=== PATIENT | male | born 1980 | race Hispanic/Latino ===

== ENCOUNTER 2019-01-10 09:39 | Emergency (ER) | payer OTHER ==
[2019-01-10 09:50] VITALS: BMI 35.6
[2019-01-10 10:45] LABS: BASO % 0.4 % (0.0-2.0); EOS % 0.4 % (0.0-4.0); HEMOGLOBIN 14.8 g/dL (12.0-18.0); LYMPH # 1.4 K/uL (1.0-4.3); MEAN CELL VOLUME 89.3 fl (80.0-94.0); MEAN CORPUSCULAR HEMOGLOBIN 30.7 pg (27.0-31.0); MEAN CORPUSCULAR HGB CONC 34.4 g/dL (33.0-37.0); MEAN PLATELET VOLUME 8.5 fl (7.2-11.7); MONO # 0.5 K/uL (0.0-0.8); MONO % 6.8 % (0.0-10.0); NEUT # 5.6 K/uL (1.8-7.0); NEUT % 73.4 % (50.0-75.0); NRBC % 0.1 % (0.0-0.0); RBC 4.82 Mil/uL (4.40-5.90); RED CELL DISTRIBUTION WIDTH 13.7 % (11.5-14.5); WHITE BLOOD COUNT 7.6 K/uL (4.8-10.8)
[2019-01-10 11:05] LABS: BLOOD UREA NITROGEN 19 mg/dl (9-20); CALCIUM 9.5 mg/dL (8.4-10.2); GFR NON-AFRICAN AMERICAN > 60
[2019-01-10 11:06] LABS: INR 0.9; PROTHROMBIN TIME 10.6 Seconds (9.8-13.1)
--- NOTE | 2019-01-10 11:56 | ED PDOC ---
HPI: Nose Bleed Time Seen by Provider: 01/10/19 10:02 Chief Complaint (Nursing): ENT Problem Chief Complaint (Provider): Nose bleed History Per: Patient History/Exam Limitations: no limitations Current Symptoms Are (Timing): Still Present Additional Complaint(s): 38 y/o male, with no past medical history, presents to the ER with nose bleed. Patient started having a nose bleed yesterday which resolved on its own. He woke up this morning, however, with his pillow soaked in blood and continued to have a nose bleed. Patient went through a role of paper towels to stop the bleeding which did not stop prompting mother to bring him to the ER. Patient states he feels very weak and that feels as if he will pass out. PMD: none Past Medical History Reviewed: Historical Data, Nursing Documentation, Vital Signs Vital Signs: Last Vital Signs Temp 98.1 F 01/10/19 09:48 Pulse 129 H 01/10/19 09:48 Resp 20 01/10/19 09:48 BP 161/91 H 01/10/19 09:48 Pulse Ox 97 01/10/19 09:48 - Medical History PMH: No Chronic Diseases - Surgical History Surgical History: No Surg Hx - Family History Family History: States: Unknown Family Hx - Social History Alcohol: None Drugs: Denies - Allergies Allergies/Adverse Reactions: Allergies Allergy/AdvReac Type Severity Reaction Status Date / Time No Known Allergies Allergy Verified 01/10/19 10:09 Review of Systems ROS Statement: Except As Marked, All Systems Reviewed And Found Negative Constitutional: Positive for: Weakness ENT: Positive for: Nose Discharge (Nose bleed) Physical Exam - Reviewed Nursing Documentation Reviewed: Yes Vital Signs Reviewed: Yes - Physical Exam Appears: Positive for: No Acute Distress Head Exam: Positive for: ATRAUMATIC, NORMOCEPHALIC Skin: Positive for: Diaphoresis, Pallor Eye Exam: Positive for: Normal appearance ENT: Positive for: Other (Active bleeding from the right nostril, heavy stream) Neck: Positive for: Normal, Painless ROM Cardiovascular/Chest: Positive for: Regular Rate, Rhythm Respiratory: Positive for: Normal Breath Sounds. Negative for: Wheezing, Respiratory Distress Extremity: Positive for: Normal ROM Neurological/Psych: Positive for: Awake, Alert, Normal Tone, Oriented - Laboratory Results Result Diagrams: 01/10/19 14:36 01/10/19 10:24 Lab Results: PT 10.6 Seconds (9.8-13.1) 01/10/19 10:24 INR 0.9 01/10/19 10:24 APTT 35.0 Seconds (25.6-37.1) 01/10/19 10:24 - ECG O2 Sat by Pulse Oximetry: 97 (RA) Pulse Ox Interpretation: Normal Medical Decision Making Medical Decision Making: Initial Impression: Workup for right nostril epistaxis. Initial Plan: --Basic labs --Patient is on weighmaster --Morphine to control pain from rhino rocket --Possible ENT consult Unable to visualize source of bleed. Attempting compression. Will try rhino rocket and Oxymetazoline. 11:45 Bleeding has stopped with compression and nasal spray. No indication for rhino rocket at this point. Labs within normal limits. Patient had episode of syncope while sitting so will continue to observe patient. Will consider repeat labs if symptoms not improved. 12:14 On reevaluation, patient is sleeping. Nose bleed has stopped but patient is tachycardic. Will give IV fluids. 14:47 Hemoglobin and hematocrit are stable. Bleeding has not returned. Patient to be discharged home and advised to follow up with PMD as needed. Return parameters discussed. Scribe Attestation: Documented by Juan Wright acting as a scribe for Gillian Gonzalez MD. Provider Scribe Attestation: All medical record entries made by the Scribe were at my direction and personally dictated by me. I have reviewed the chart and agree that the record accurately reflects my personal performance of the history, physical exam, medical decision making, and the department course for this patient. I have also personally directed, reviewed, and agree with the discharge instructions and disposition. Disposition - Clinical Impression Clinical Impression: Epistaxis not due to trauma - Disposition Disposition: Routine/Home Disposition Time: 14:57 Condition: IMPROVED Additional Instructions: Avoid blowing nose, picking nose, and sneezing for the next day. If bleeding resumes, hold pressure on the nostrils for 10 mins. If you cannot control the bleeding, return to the emergency department. Instructions: Nosebleeds (DC) Forms: [facility] (Mongolian), [facility] ED School/Work Excuse Print Language: MONGOLIAN
[2019-01-10] MEDS ORDERED: Sodium Chloride 0.9% 1,000 ML IV STA (12:14)
[2019-01-10 12:33] VITALS: RESP 18
[2019-01-10 14:46] LABS: BASO % 0.5 % (0.0-2.0); HEMOGLOBIN 13.7 g/dL (12.0-18.0); LYMPH # 1.1 K/uL (1.0-4.3); LYMPH % 11.4 % (20.0-40.0); MEAN CELL VOLUME 90.2 fl (80.0-94.0); MEAN CORPUSCULAR HEMOGLOBIN 30.9 pg (27.0-31.0); MEAN CORPUSCULAR HGB CONC 34.2 g/dL (33.0-37.0); MEAN PLATELET VOLUME 8.2 fl (7.2-11.7); MONO # 0.5 K/uL (0.0-0.8); MONO % 5.2 % (0.0-10.0); NEUT # 7.7 K/uL (1.8-7.0); NEUT % 82.9 % (50.0-75.0); RBC 4.42 Mil/uL (4.40-5.90); RED CELL DISTRIBUTION WIDTH 13.9 % (11.5-14.5); WHITE BLOOD COUNT 9.2 K/uL (4.8-10.8)
[2019-01-10 15:33] VITALS: BP 154/98; PULSE 115; TEMP 98.9; O2SAT 99
== END 2019-01-10 15:41 | disposition home or self-care (01) ==
LOC: H.ER 09:39
DX: R04.0 Epistaxis (principal)
CPT/HCPCS: 80048; 85025; 85610; 85730; 96361; 96374; 99284; J2270; J7030